=== PATIENT | male | born 1950 | race Caucasian/White ===

== ENCOUNTER 2019-09-17 14:55 | Emergency (ER) | payer MEDICARE, OTHER ==
--- NOTE | 2019-09-17 15:24 | EDM.PDOC ---
ED HPI GENERAL MEDICAL PROBLEM - General Stated Complaint: HIP/BACK PAIN Time Seen by Provider: 09/17/19 15:16 Source of Information: Reports: Patient History Limitations: Reports: No Limitations - History of Present Illness INITIAL COMMENTS - FREE TEXT/NARRATIVE: HISTORY AND PHYSICAL: History of present illness: Patient is a 68-year-old male who presents to the emergency room today with complaints of lumbar back pain which radiates down both legs. Patient reports that he has had a few falls this winter due to slipping on the ice. He has not sought any treatment or evaluation post falls. Over the past several months, more so the past few weeks he has had lumbar back pain which he states goes into both hips and down both legs. He states mostly in the morning he is having difficulty ambulating due to pain. He has gone to a chiropractor for adjustments but states he has not gotten much relief. He denies any numbness, tingling or saddle paresthesia. He denies any urinary or fecal incontinence. Denies any testicular pain, swelling or erythema. Review of systems: As per history of present illness and below otherwise all systems reviewed and negative. Past medical history: As per history of present illness and as reviewed below otherwise noncontributory. Surgical history: As per history of present illness and as reviewed below otherwise noncontributory. Social history: See social history for further information Family history: As per history of present illness and as reviewed below otherwise noncontributory. Physical exam: General: Well-developed and well-nourished 68-year-old male. Alert and oriented. Nontoxic-appearing and in no acute distress. HEENT: Atraumatic, normocephalic, pupils equal and reactive bilaterally, negative for conjunctival pallor or scleral icterus, mucous membranes moist, TMs normal bilaterally, throat clear, neck supple, nontender, trachea midline. No drooling or trismus noted. No meningeal signs. No hot potato voice noted. Lungs: Clear to auscultation, breath sounds equal bilaterally, chest nontender. Heart: S1S2, regular rate and rhythm without overt murmur Abdomen: Soft, nondistended, nontender. Negative for masses or hepatosplenomegaly. Negative for costovertebral tenderness. Pelvis: Stable nontender. C-spine/Back: No pinpoint vertebral tenderness upon palpation. No crepitus, step -offs or obvious deformities. Para spinous muscular tenderness to the low lumbar region bilaterally. Muscular tenderness going into bilateral glutes. Patient is ambulatory into the emergency room without difficulty or deficit. Able to rock back on heels and walk on toes. Denies any urinary or fecal incontinence. Denies any numbness, tingling or saddle paresthesia. Skin: Intact, warm, dry. No lesions or rashes noted. Extremities: Atraumatic, moves all extremities per self without difficulty or deficits, negative for cords or calf pain. Neurovascular unremarkable. Neuro: Awake, alert, oriented. Cranial nerves II through XII unremarkable. Cerebellum unremarkable. Motor and sensory unremarkable throughout. Exam nonfocal. Notes: X-ray shows degenerative changes. No acute findings. Patient is ambulatory but states it is painful especially in the morning to get up and moving. This does sound somewhat arthritic and muscular in nature. I encouraged him to follow-up with his primary care provider for further evaluation and management of this. Supportive care measures were reviewed and discussed. Voices understanding and is agreeable to plan of care. Denies any further questions or concerns at this time. Diagnostics: Lumbar x-ray Therapeutics: Toradol Prescription: Diclofenac Medrol Dosepak Flexeril Impression: Degenerative disc disease Lumbago Plan: 1. When resting please lay on a flat firm surface. Limit your immobility to prevent muscle stiffness. Get up to ambulate/move around/gentle stretching multiple times throughout the day. May alternate heat and ice to the painful areas 3. Tylenol as needed for back pain. Otherwise take the prescribed Flexeril and diclofenac as directed. Diclofenac is an anti-inflammatory so do not take any additional NSAIDs with this medication, such as ibuprofen or Aleve. Flexeril as a muscle relaxant, this medication may cause drowsiness a do not take it will driving her needing to be functioning outside of the house. 4. Please follow-up with your primary care provider as we discussed. Return to the ED as needed and as discussed. Definitive disposition and diagnosis as appropriate pending reevaluation and review of above. back/hips Pain Score (Numeric/FACES): 7 - Related Data Allergies Allergy/AdvReac Type Severity Reaction Status Date / Time No Known Allergies Allergy Verified 09/17/19 15:14 Home Meds: Home Meds Cyclobenzaprine [Flexeril] 10 mg PO TID PRN #21 tab 09/17/19 [Rx] Diclofenac Sodium 50 mg PO TID PRN #30 tablet. 09/17/19 [Rx] Lisinopril/Hydrochlorothiazide [Lisinopril-Hctz 20-25 mg Tab] 1 each PO DAILY [History] amLODIPine [Norvasc] 5 mg PO DAILY 09/17/19 [History] metFORMIN [Glucophage] 500 mg PO BIDMEALS 09/17/19 [History] methylPREDNISolone [Medrol] 1 dose PO DAILY 6 Days #1 dospk 09/17/19 [Rx] ED ROS GENERAL - Review of Systems Review Of Systems: Comprehensive ROS is negative, except as noted in HPI. ED EXAM, GENERAL - Physical Exam Exam: See Below (See dictation) Course - Vital Signs Last Recorded V/S: Last Vital Signs Temp 96.7 F L 09/17/19 15:11 Pulse 89 09/17/19 15:11 Resp 18 09/17/19 15:11 BP 111/68 09/17/19 15:11 Pulse Ox 97 09/17/19 15:11 - Orders/Labs/Meds Meds: Medications Discontinued Medications Generic Name Dose Route Start Last Admin Trade Name Freq PRN Reason Stop Dose Admin Ketorolac Tromethamine 60 mg 09/17/19 15:25 09/17/19 15:30 Toradol IM 09/17/19 15:26 60 mg ONETIME ONE Administration Departure - Departure Time of Disposition: 15:51 Disposition: Home, Self-Care 01 Clinical Impression: Degenerative disc disease, lumbar Lumbago Qualifiers: Chronicity: unspecified Back pain laterality: bilateral Sciatica presence: with sciatica Sciatica laterality: bilateral sciatica Qualified Code(s): M54.42 - Lumbago with sciatica, left side - Discharge Information Prescriptions: Cyclobenzaprine [Flexeril] 10 mg PO TID PRN #21 tab PRN Reason: Muscle Spasm Diclofenac Sodium 50 mg PO TID PRN #30 tablet.dr FREGOSO Reason: Pain methylPREDNISolone [Medrol] 1 dose PO DAILY 6 Days #1 dospk Referrals: PCP,Not In Area [Primary Care Provider] - Additional Instructions: The following information is given to patients seen in the emergency department who are being discharged to home. This information is to outline your options for follow-up care. We provide all patients seen in our emergency department with a follow-up referral. The need for follow-up, as well as the timing and circumstances, are variable depending upon the specifics of your emergency department visit. If you don't have a primary care physician on staff, we will provide you with a referral. We always advise you to contact your personal physician following an emergency department visit to inform them of the circumstance of the visit and for follow-up with them and/or the need for any referrals to a consulting specialist. The emergency department will also refer you to a specialist when appropriate. This referral assures that you have the opportunity for follow-up care with a specialist. All of these measure are taken in an effort to provide you with optimal care, which includes your follow-up. Under all circumstances we always encourage you to contact your private physician who remains a resource for coordinating your care. When calling for follow-up care, please make the office aware that this follow-up is from your recent emergency room visit. If for any reason you are refused follow-up, please contact the [facility] Emergency Department at and asked to speak to the emergency department charge nurse. [facility] [address] [place] [address] [id number] [address] [address] 1. When resting please lay on a flat firm surface. Limit your immobility to prevent muscle stiffness. Get up to ambulate/move around/gentle stretching multiple times throughout the day. May alternate heat and ice to the painful areas 2. Tylenol as needed for back pain. Otherwise take the prescribed Flexeril and diclofenac as directed. Diclofenac is an anti-inflammatory so do not take any additional NSAIDs with this medication, such as ibuprofen or Aleve. Flexeril as a muscle relaxant, this medication may cause drowsiness a do not take it will driving her needing to be functioning outside of the house. 3. Please follow-up with your primary care provider as we discussed. Return to the ED as needed and as discussed. Sepsis Event Note - Evaluation Sepsis Screening Result: No Definite Risk - Focused Exam Vital Signs: Vital Signs Temp Pulse Resp BP Pulse Ox 09/17/19 15:11 96.7 F L 89 18 111/68 97 Date Exam was Performed: 09/17/19 Time Exam was Performed: 15:53
[2019-09-17] MEDS ORDERED: Ketorolac 60 MG/2 ML SDV IM ONE (15:25)
--- NOTE | 2019-09-17 15:44 | CR ---
Lumbar spine: AP, lateral and cone-down lateral views centered to the lumbosacral junction were obtained. Mild disc space narrowing is noted at L1-2. Posterior disc space narrowing is noted at L2-3 through L5-S1. Vertebral body heights maintained. Scattered endplate osteophytes are seen. Pedicles are intact. Visualized transverse and spinous processes are intact. Vascular calcification is noted. Impression: 1. Degenerative change as described above. Diagnostic code #2 This report was dictated in MDT
== END 2019-09-17 16:06 | disposition home or self-care (01) ==
LOC: MW.ED 14:55
DX: M51.36 Other intervertebral disc degeneration, lumbar region (principal); M54.41 Lumbago with sciatica, right side; M54.42 Lumbago with sciatica, left side; Z79.84 Long term (current) use of oral hypoglycemic drugs; Z79.899 Other long term (current) drug therapy
CPT/HCPCS: 72100; 96372; 99283; J1885